=== PATIENT | female | born 1965 | race Caucasian/White ===

== ENCOUNTER 2018-07-01 11:42 | Day surgery (SDC) | payer OTHER ==
[2018-07-01 12:28] LABS: BASO % 0.8 % (0-2.0); EOS % 1.3 % (0-4.5); HEMOGLOBIN 13.4 GM/dL (10.7-15.3); LYMPH % 34.1 % (8-40); MCH 29.3 pg (25.7-33.7); MCHC 34.4 g/dl (32.0-36.0); MEAN CELL VOLUME 85.2 fl (80-96); MEAN PLT VOLUME 7.7 fl (7.5-11.1); MONO % 5.8 % (3.8-10.2); PLATELET COUNT 304 K/MM3 (134-434); RBC 4.58 M/mm3 (3.60-5.2); RDW 13.8 % (11.6-15.6); WHITE BLOOD COUNT 6.8 K/mm3 (4.0-10.0)
[2018-07-01 13:10] LABS: INR 0.97 (0.83-1.09); PROTHROMBIN TIME (PATIENT) 11.5 SEC (9.7-13.0)
[2018-07-01 13:11] VITALS: BMI 39.4
[2018-07-01 13:11] LABS: ALBUMIN 3.7 g/dl (3.4-5.0); ALK PHOS 76 U/L (45-117); ANION GAP 5 MMOL/L (8-16); BILIRUBIN,TOTAL 0.5 mg/dL (0.2-1); BLOOD UREA NITROGEN 10 mg/dL (7-18); CALCIUM 9.1 mg/dL (8.5-10.1); CHLORIDE 106 mmol/L (98-107); CO2 30 mmol/L (21-32); CREATININE 0.9 mg/dL (0.55-1.3); GLUCOSE,RANDOM 88 mg/dL (74-106); POTASSIUM 4.4 mmol/L (3.5-5.1); SGOT/AST 17 U/L (15-37); SGPT/ALT 23 U/L (13-61); SODIUM 141 mmol/L (136-145); TOT PROT 7.5 g/dl (6.4-8.2)
[2018-07-01 13:13] LABS: ACTIVATED PTT 28.3 SECONDS (25.2-36.5)
[2018-07-01] MEDS ORDERED: DEXAMETHASONE SOD PHOSPHATE 4 MG/1 ML VIAL ONE (13:49)
[2018-07-01] MEDS ORDERED: LIDOCAINE HCL/PF 2% SDV 5ML VIAL ONE (13:49)
[2018-07-01] MEDS ORDERED: MIDAZOLAM HCL 2 MG/2 ML SINGLE DOSE VIAL ONE (13:50)
[2018-07-01] MEDS ORDERED: PROPOFOL 20 ML ONE ×2 (13:50)
--- NOTE | 2018-07-01 14:03 | HP ---
History & Physical Update - Physical Physical: No Change - Assessment Assessment: No Change - Plan Plan: No Change (H&P reviwed , 06/30/18 ,no changes for hysteroscopy D&C ,)
[2018-07-01] MEDS ORDERED: IBUPROFEN 800 MG/8 ML IJ IVPB PRN (14:05)
[2018-07-01] MEDS ORDERED: oxyCODONE HCL 5 MG TABLET PO PRN (14:05)
[2018-07-01] MEDS ORDERED: ONDANSETRON 4 MG/2 ML VIAL IVPUSH PRN (14:05)
[2018-07-01] MEDS ORDERED: IBUPROFEN 600 MG TABLET (FP) PO PRN (14:05)
[2018-07-01] MEDS ORDERED: ELECTROLYTE-148 SOLN 1,000 ML IV SCH (14:15)
[2018-07-01] MEDS ORDERED: ACETAMINOPHEN 1000 MG/100 ML VIAL (NON FORMULARY) IVPB PRN (14:35)
[2018-07-01] MEDS ORDERED: LACTATED RINGERS SOLUTION 1,000 ML IV SCH (14:45)
[2018-07-01] MEDS ORDERED: ACETAMINOPHEN INJECTION 100 ML IVPB ONE (14:49)
[2018-07-01] MEDS ORDERED: ACETAMINOPHEN 1000 MG/100 ML VIAL (NON FORMULARY) IVPB ONE (15:00)
--- NOTE | 2018-07-01 15:17 | PN ---
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 importance discussed
--- NOTE | 2018-07-01 16:20 | EKG ---
Test Reason : Blood Pressure : / mmHG Vent. Rate : 084 BPM Atrial Rate : 084 BPM P-R Int : 206 ms QRS Dur : 184 ms QT Int : 440 ms P-R-T Axes : 049 005 087 degrees QTc Int : 519 ms NORMAL SINUS RHYTHM LEFT BUNDLE BRANCH BLOCK ABNORMAL ECG WHEN COMPARED WITH ECG OF 01-JUL-2018 12:58, NO SIGNIFICANT CHANGE WAS FOUND Confirmed by ELKIN ATWOOD MD ([id number]) on 07/01/2018 4:20:27 PM Referred By: Sam Browning Confirmed By:ELKIN ATWOOD MD
--- NOTE | 2018-07-01 16:21 | EKG ---
Test Reason : Blood Pressure : / mmHG Vent. Rate : 083 BPM Atrial Rate : 083 BPM P-R Int : 186 ms QRS Dur : 178 ms QT Int : 428 ms P-R-T Axes : 023 -19 095 degrees QTc Int : 502 ms NORMAL SINUS RHYTHM LEFT BUNDLE BRANCH BLOCK ABNORMAL ECG NO PREVIOUS ECGS AVAILABLE Confirmed by RAI BENAVIDES, ELKIN (2013) on 07/01/2018 4:20:45 PM Referred By: Sam Browning Confirmed By:ELKIN ATWOOD MD
[2018-07-01 17:32] VITALS: BP 121/78; PULSE 85; TEMP 98.9
--- NOTE | 2018-07-01 19:17 | OP ---
DATE OF OPERATION: 07/01/2018 PREOPERATIVE DIAGNOSES: Menometrorrhagia, thickened endometrium. POSTOPERATIVE DIAGNOSES: Menometrorrhagia, thickened endometrium. PROCEDURE: Hysteroscopy, dilatation and curettage, polypectomy. SURGEON: Sam Browning MD ANESTHESIA: General. ANESTHESIOLOGIST: Mary Taylor MD ESTIMATED BLOOD LOSS: 50 mL DESCRIPTION OF OPERATION: Patient was taken to the operating room. Under adequate general anesthesia, examination under anesthesia revealed external genitalia to be normal. Vagina was no lesion. Cervix was normal with bleeding from the os. Uterus was uniformly enlarged, approximately 12 weeks. Adnexa: No masses were palpable. Then, with the weighted speculum in the vagina, anterior lip of the cervix was grasped with single-tooth tenaculum, and cervix was slightly dilated. Uterine cavity was sounded to 12 cm. Then, hysteroscope was introduced. Visualization of endocervical canal appeared to be normal. Endometrium was irregular, patchy, and thickened. There were 2 floating polyps at the fundal area of the uterus. Both cornual regions were identified. Tubal ostia were visualized. No other abnormality was noted. The polyp was removed, and then, endometrium was curetted. Patient tolerated the procedure well, left the OR in good condition. Rg [id number]
--- NOTE | 2018-07-06 14:36 | PATH ---
Surgical Pathology Report Patient Name: [facility]. Rec. #: [id number] /Age/Gender: 1965 (Age: 53) / F Account: [id number] Location: [facility] SURGICAL Taken: 07/01/2018 Received: 07/02/2018 Reported: 07/06/2018 Physicians: Sam Browning M.D. Specimen(s) Received ENDOMETRIAL CURETTINGS Clinical History Premenopausal, excess bleeding/thick endometrium Final Diagnosis ENDOMETRIAL CURETTINGS: ENDOMETRIAL TISSUE SHOWING SIMPLE HYPERPLASIA WITHOUT ATYPIA, SQUAMOUS MORULES, STROMAL BREAKDOWN, AND FOCAL EOSINOPHILIC SYNCYTIAL CHANGE. SEPARATE FRAGMENTS OF ENDOMETRIAL POLYP. SEPARATE ENDOCERVICAL TISSUE WITH SQUAMOUS METAPLASIA. Electronically Signed Jairo Brambila M.D. Gross Description Received in formalin labeled "endometrial curettings," is a 5.4 x 3.5 x 0.6 cm aggregate of morgan-brown soft tissue fragments admixed with blood clot. The formalin is filtered and the specimen is entirely submitted in 5 cassettes. /07/02/2018 saudi/07/02/2018
== END 2018-07-01 17:15 | disposition home or self-care (01) ==
LOC: JASU-SURG 11:42 → JOR 11:42 → JASU-SURG 17:15
PROVIDERS: ATTEND Obstetrics & Gynecology
PROC: 0UB98ZZ Excision of Uterus, Via Natural or Artificial Opening Endoscopic (ICD-10-PCS; principal; 2018-07-01 14:00)
PROC: 0UDB8ZX Extraction of Endometrium, Via Natural or Artificial Opening Endoscopic, Diagnostic (ICD-10-PCS; 2018-07-01 14:00)
DX: N92.1 Excessive and frequent menstruation with irregular cycle (principal); R93.89 Abnormal findings on diagnostic imaging of other specified body structures
CPT/HCPCS: 36415; 71046-TC-FY; 80053; 84702; 85025; 85610; 85730; 88305-TC; 93005; 93010; 94760; J0131